=== PATIENT | male | born 1960 | race Caucasian/White ===

== ENCOUNTER 2017-11-04 19:28 | Emergency (ER) | payer OTHER ==
[2017-11-04] MEDS ORDERED: SODIUM CHLORIDE 0.9% 500 ML IV STA (20:08)
[2017-11-04] MEDS ORDERED: ACETAMINOPHEN TAB 500 MG TAB PO STA (20:15)
--- NOTE | 2017-11-04 20:15 | ED ---
General Adult HPI - General Source: patient, RN notes reviewed Mode of arrival: wheelchair Limitations: no limitations <Benjamin Arechiga - Last Filed: 11/04/17 21:05> <Amando Crandall - Last Filed: 11/04/17 22:53> - General Chief complaint: Weakness Stated complaint: Blood in urine Time Seen by Provider: 11/04/17 19:45 - History of Present Illness Initial comments: This a 57-year-old male presents emergency Department complaining that he's been feeling a little bit weak lately and as of this morning he started having some hematuria. Patient denies any dysuria. Patient denies any CVA tenderness. Patient denies any abdominal pain patient denies nausea vomiting diarrhea. Patient denies any flank pain. Patient denies any fever chills so I just took his temperature and had a fever 100.2. Patient denies any recent upper respiratory infection patient denies cough patient denies difficulty breathing shortness of breath. Patient denies any chest pain or palpitations. Patient states he does have a history of atrial fibrillation and is on eliquis. (Benjamin Arechiga) - Related Data Home Medications Medication Instructions Recorded Confirmed Apixaban [Eliquis] 5 mg PO BID 11/04/17 11/04/17 Aspirin [Adult Low Dose Aspirin EC] 81 mg PO DAILY 11/04/17 11/04/17 Diltiazem HCl [Cartia Xt] 120 mg PO DAILY 11/04/17 11/04/17 Dofetilide [Tikosyn] 500 mcg PO Q12HR 11/04/17 11/04/17 LORazepam [Ativan] 1 mg PO HS 11/04/17 11/04/17 Nitroglycerin Sl Tabs [Nitrostat] 0.4 mg SUBLINGUAL Q5M PRN 11/04/17 11/04/17 Rosuvastatin [Crestor] 10 mg PO DAILY 11/04/17 11/04/17 Ticagrelor [Brilinta] 90 mg PO BID 11/04/17 11/04/17 Ubidecarenone [Co Q-10] 200 mg PO DAILY 11/04/17 11/04/17 Previous Rx's Medication Instructions Recorded Ciprofloxacin HCl [Cipro] 500 mg PO Q12HR #14 tablet 11/04/17 Allergies Allergy/AdvReac Type Severity Reaction Status Date / Time acetaminophen AdvReac Nausea & Verified 11/04/17 20:19 [From Darvocet-N] Vomiting & Diarrhea iodine AdvReac Unknown Verified 11/04/17 20:19 propoxyphene AdvReac Nausea & Verified 11/04/17 20:19 [From Darvocet-N] Vomiting & Diarrhea Review of Systems ROS Other: All systems not noted in ROS Statement are negative. <Benjamin Arechiga - Last Filed: 11/04/17 21:05> ROS Other: All systems not noted in ROS Statement are negative. <Amando Crandall - Last Filed: 11/04/17 22:53> ROS Statement: Those systems with pertinent positive or pertinent negative responses have been documented in the HPI. Past Medical History Past Medical History: Atrial Fibrillation, Hyperlipidemia History of Any Multi-Drug Resistant Organisms: None Reported Past Surgical History: Heart Catheterization With Stent Additional Past Surgical History / Comment(s): cardiac ablation Past Psychological History: No Psychological Hx Reported Smoking Status: Current every day smoker Past Alcohol Use History: None Reported Past Drug Use History: None Reported <Benjamin Arechiga - Last Filed: 11/04/17 21:05> General Exam Limitations: no limitations <Benjamin Arechiga - Last Filed: 11/04/17 21:05> <Amando Crandall - Last Filed: 11/04/17 22:53> - General Exam Comments Initial Comments: GENERAL: Patient is well-developed and well-nourished. Patient is nontoxic and well- hydrated and is in mild distress. ENT: Neck is soft and supple. No significant lymphadenopathy is noted. Oropharynx is clear. Moist mucous membranes. Neck has full range of motion without eliciting any pain. EYES: The sclera were anicteric and conjunctiva were pink and moist. Extraocular movements were intact and pupils were equal round and reactive to light. Eyelids were unremarkable. PULMONARY: Unlabored respirations. Good breath sounds bilaterally. No audible rales rhonchi or wheezing was noted. CARDIOVASCULAR: There is a regular rate and rhythm without any murmurs gallops or rubs. ABDOMEN: Soft and nontender with normal bowel sounds. SKIN: Skin is clear with no lesions or rashes and otherwise unremarkable. NEUROLOGIC: Patient is alert and oriented x3. Cranial nerves II through XII are grossly intact. Motor and sensory are also intact. Normal speech, volume and content. Symmetrical smile. MUSCULOSKELETAL: Normal extremities with adequate strength and full range of motion. LYMPHATICS: No significant lymphadenopathy is noted PSYCHIATRIC: Normal psychiatric evaluation. Normal interpersonal interactions appears functionally intact in deals appropriately with others. (Benjamin Arechiga) Vital Signs 11/04/17 11/04/17 11/04/17 19:44 20:38 21:05 Temperature 98.7 F 100.2 F H 98.8 F Pulse Rate 63 69 Respiratory 20 18 Rate Blood Pressure 131/70 124/66 O2 Sat by Pulse 97 99 Oximetry Medical Decision Making - Lab Data Result diagrams: 11/04/17 20:29 11/04/17 20:29 <Benjamin Arechiga - Last Filed: 11/04/17 21:05> - Lab Data Result diagrams: 11/04/17 20:29 11/04/17 20:29 <Amando Crandall - Last Filed: 11/04/17 22:53> - Medical Decision Making X-rays of be taking over the care of this patient at 9 PM (Benjamin Arechiga) - Lab Data Lab Results 11/04/17 11/04/17 11/04/17 Range/Units 20:29 20:29 20:29 WBC 9.4 (3.8-10.6) k/uL RBC 4.44 (4.30-5.90) m/uL Hgb 14.4 (13.0-17.5) gm/dL Hct 41.7 (39.0-53.0) % MCV 93.9 (80.0-100.0) fL MCH 32.4 (25.0-35.0) pg MCHC 34.5 (31.0-37.0) g/dL RDW 12.6 (11.5-15.5) % Plt Count 244 (150-450) k/uL Neutrophils % 71 % Lymphocytes % 19 % Monocytes % 7 % Eosinophils % 1 % Basophils % 1 % Neutrophils # 6.7 (1.3-7.7) k/uL Lymphocytes # 1.8 (1.0-4.8) k/uL Monocytes # 0.6 (0-1.0) k/uL Eosinophils # 0.1 (0-0.7) k/uL Basophils # 0.1 (0-0.2) k/uL PT (9.0-12.0) sec INR (<1.2) APTT (22.0-30.0) sec Sodium 142 (137-145) mmol/L Potassium 3.8 (3.5-5.1) mmol/L Chloride 106 (98-107) mmol/L Carbon Dioxide 23 (22-30) mmol/L Anion Gap 13 mmol/L BUN 19 (9-20) mg/dL Creatinine 1.10 (0.66-1.25) mg/dL Est GFR (CKD-EPI)AfAm 86 (>60 ml/min/1.73 sqM) Est GFR (CKD-EPI)NonAf 74 (>60 ml/min/1.73 sqM) Glucose 123 H (74-99) mg/dL Calcium 9.0 (8.4-10.2) mg/dL Total Bilirubin 0.7 (0.2-1.3) mg/dL AST 29 (17-59) U/L ALT 37 (21-72) U/L Alkaline Phosphatase 79 (38-126) U/L Total Protein 6.3 (6.3-8.2) g/dL Albumin 3.9 (3.5-5.0) g/dL Amylase 55 (30-110) U/L Lipase 74 (23-300) U/L Urine Color Light Red Urine Appearance Cloudy (Clear) Urine pH 5.5 (5.0-8.0) Ur Specific [place] 1.005 (1.001-1.035) Urine Protein 1+ H (Negative) Urine Glucose (UA) Negative (Negative) Urine Ketones Negative (Negative) Urine Blood Large H (Negative) Urine Nitrite Negative (Negative) Urine Bilirubin Negative (Negative) Urine Urobilinogen <2.0 (<2.0) mg/dL Ur Leukocyte Esterase Trace H (Negative) Urine RBC 19 H (0-5) /hpf Urine WBC 7 H (0-5) /hpf Ur Squamous Epith Cells 1 (0-4) /hpf Amorphous Sediment Occasional H (None) /hpf Urine Bacteria Few H (None) /hpf Hyaline Casts 2 (0-2) /lpf Urine Mucus Rare H (None) /hpf //18 Range/Units 20:29 WBC (3.8-10.6) k/uL RBC (4.30-5.90) m/uL Hgb (13.0-17.5) gm/dL Hct (39.0-53.0) % MCV (80.0-100.0) fL MCH (25.0-35.0) pg MCHC (31.0-37.0) g/dL RDW (11.5-15.5) % Plt Count (150-450) k/uL Neutrophils % % Lymphocytes % % Monocytes % % Eosinophils % % Basophils % % Neutrophils # (1.3-7.7) k/uL Lymphocytes # (1.0-4.8) k/uL Monocytes # (0-1.0) k/uL Eosinophils # (0-0.7) k/uL Basophils # (0-0.2) k/uL PT 10.9 (9.0-12.0) sec INR 1.1 (<1.2) APTT 31.1 H (22.0-30.0) sec Sodium (137-145) mmol/L Potassium (3.5-5.1) mmol/L Chloride (98-107) mmol/L Carbon Dioxide (22-30) mmol/L Anion Gap mmol/L BUN (9-20) mg/dL Creatinine (0.66-1.25) mg/dL Est GFR (CKD-EPI)AfAm (>60 ml/min/1.73 sqM) Est GFR (CKD-EPI)NonAf (>60 ml/min/1.73 sqM) Glucose (74-99) mg/dL Calcium (8.4-10.2) mg/dL Total Bilirubin (0.2-1.3) mg/dL AST (17-59) U/L ALT (21-72) U/L Alkaline Phosphatase (38-126) U/L Total Protein (6.3-8.2) g/dL Albumin (3.5-5.0) g/dL Amylase (30-110) U/L Lipase (23-300) U/L Urine Color Urine Appearance (Clear) Urine pH (5.0-8.0) Ur Specific [place] (1.001-1.035) Urine Protein (Negative) Urine Glucose (UA) (Negative) Urine Ketones (Negative) Urine Blood (Negative) Urine Nitrite (Negative) Urine Bilirubin (Negative) Urine Urobilinogen (<2.0) mg/dL Ur Leukocyte Esterase (Negative) Urine RBC (0-5) /hpf Urine WBC (0-5) /hpf Ur Squamous Epith Cells (0-4) /hpf Amorphous Sediment (None) /hpf Urine Bacteria (None) /hpf Hyaline Casts (0-2) /lpf Urine Mucus (None) /hpf Disposition <Benjamin Arechiga - Last Filed: 11/04/17 21:05> Is patient prescribed a controlled substance at d/c from ED?: No <Amando Crandall - Last Filed: 11/04/17 22:53> Clinical Impression: Hematuria, Kidney mass Disposition: HOME SELF-CARE Condition: Fair Instructions: Hematuria (ED) Prescriptions: Ciprofloxacin HCl [Cipro] 500 mg PO Q12HR #14 tablet Referrals: Adan Melton MD [Primary Care Provider] - 1-2 days Reagan Campoverde MD [STAFF PHYSICIAN] - 1-2 days
[2017-11-04 20:42] LABS: Basophils # (A) 0.1 k/uL (0-0.2); Basophils % (A) 1 %; Eosinophils # (A) 0.1 k/uL (0-0.7); Eosinophils % (A) 1 %; HCT 41.7 % (39.0-53.0); HGB 14.4 gm/dL (13.0-17.5); Lymphocytes # (A) 1.8 k/uL (1.0-4.8); Lymphocytes % (A) 19 %; MCH 32.4 pg (25.0-35.0); MCHC 34.5 g/dL (31.0-37.0); MCV 93.9 fL (80.0-100.0); Monocytes # (A) 0.6 k/uL (0-1.0); Monocytes % (A) 7 %; Neutrophils # (A) 6.7 k/uL (1.3-7.7); Neutrophils % (A) 71 %; Platelet Count 244 k/uL (150-450); RBC 4.44 m/uL (4.30-5.90); RDW 12.6 % (11.5-15.5); WBC 9.4 k/uL (3.8-10.6)
[2017-11-04 20:51] LABS: Albumin 3.9 g/dL (3.5-5.0); Potassium 3.8 mmol/L (3.5-5.1); Total Bilirubin 0.7 mg/dL (0.2-1.3); Total Protein 6.3 g/dL (6.3-8.2)
[2017-11-04 20:53] LABS: Amorphous Sediment,Urine Occasional /hpf; Appearance,Urine Cloudy (Clear); Bacteria,Urine Few /hpf; Bilirubin,Urine Negative (Negative); Blood,Urine Large (Negative); Color,Urine Light Red; Glucose,Urine (UA) Negative (Negative); Hyaline Casts,Urine 2 /lpf (0-2); Ketones,Urine Negative (Negative); Leukocyte Esterase,Urine Trace (Negative); Mucus,Urine Rare /hpf; Nitrite,Urine Negative (Negative); PH, Urine 5.5 (5.0-8.0); Protein,Urine 1+ (Negative); RBC,Urine 19 /hpf (0-5); Specific Gravity,Urine 1.005 (1.001-1.035); Squamous Epithelial Cell,Urine 1 /hpf (0-4); Urobilinogen,Urine <2.0 mg/dL (<2.0); WBC,Urine 7 /hpf (0-5)
[2017-11-04 20:58] LABS: INR 1.1 (<1.2); Partial Thromboplastin Time 31.1 sec (22.0-30.0); Prothrombin Time 10.9 sec (9.0-12.0)
[2017-11-04 21:06] VITALS: RESP 18
[2017-11-04] MEDS ORDERED: methylPREDNISolone SOD SUCCI 125 MG/2 ML VIAL IV STA (21:18)
[2017-11-04] MEDS ORDERED: FAMOTIDINE 20 MG/2 ML VIAL IV STA (21:19)
[2017-11-04] MEDS ORDERED: diphenhydrAMINE 50 MG/ML 1 ML VIAL IVP STA (21:19)
--- NOTE | 2017-11-04 22:03 | CT ---
EXAMINATION TYPE: CT abdomen pelvis w con DATE OF EXAM: 11/04/2017 COMPARISON: NONE HISTORY: Hematuria, fatigue and weakness. CT DLP: 1823 mGycm Automated exposure control for dose reduction was used. TECHNIQUE: Helical acquisition of images was performed from the lung bases through the pelvis. CONTRAST: Performed without Oral Contrast and with IV Contrast, patient injected with 100ml mL of Isovue 300. FINDINGS: There is subsegmental atelectasis at the lung bases. There is no pleural effusion. There is no perica rdial effusion. Liver spleen pancreas gallbladder appear normal. Bile ducts are not dilated. There is no adrenal mass. Kidneys show satisfactory contrast opacification. There is no hydronephrosi s. There is solid 3.5 cm enhancing mass in the posterior right kidney. There is 2 cm cortical cyst an terior left kidney. There is 2 cm cortical cyst posterior right kidney. Ureters are not dilated. Bladder distends smoothly. I see no pelvic mass. There is no intestinal wall thickening. There are no dilated loops. Appendix appears normal. There are a few sigmoid diverticula . There is no sign of diverticulitis. Lumbar vertebra are intact. There is no ascites. There is no si gn of free air. IMPRESSION: SMALL RENAL CORTICAL CYSTS. SOLID MASS IN THE POSTERIOR RIGHT KIDNEY SUGGESTIVE OF PRIMARY RENAL TUMOR. FOLLOW-UP IS RECOMMENDED.
[2017-11-04 23:08] VITALS: BP 126/70; PULSE 64; TEMP 97.4
== END 2017-11-04 23:08 | disposition home or self-care (01) ==
LOC: EC 19:28
DX: N28.89 Other specified disorders of kidney and ureter (principal); I48.91 Unspecified atrial fibrillation; E78.5 Hyperlipidemia, unspecified; F17.200 Nicotine dependence, unspecified, uncomplicated; Z79.01 Long term (current) use of anticoagulants; Z79.82 Long term (current) use of aspirin; Z79.899 Other long term (current) drug therapy; Z88.5 Allergy status to narcotic agent; Z88.8 Allergy status to other drugs, medicaments and biological substances; Z95.5 Presence of coronary angioplasty implant and graft
CPT/HCPCS: 36415; 80053; 82150; 83690; 85025; 85610; 85730; 81001; 74177; 99285; 96374; 96375 ×2; 96361; J1200; J2930; Q9967

== ENCOUNTER 2019-07-23 21:44 | Emergency (ER) | payer OTHER ==
[2019-07-23] MEDS ORDERED: methylPREDNISolone SOD SUCCI 125 MG/2 ML VIAL IV STA (22:39)
[2019-07-23] MEDS ORDERED: diphenhydrAMINE 50 MG/ML 1 ML VIAL IVP STA (22:39)
[2019-07-23] MEDS ORDERED: FAMOTIDINE 20 MG/2 ML VIAL IV STA (22:39)
[2019-07-23] MEDS ORDERED: MORPHINE SULFATE 4 MG/ML SYRINGE IVP PRN (23:14)
[2019-07-23 23:15] LABS: Basophils # (A) 0.1 k/uL (0-0.2); Basophils % (A) 1 %; Eosinophils # (A) 0.2 k/uL (0-0.7); Eosinophils % (A) 3 %; HCT 42.1 % (39.0-53.0); HGB 14.5 gm/dL (13.0-17.5); Lymphocytes # (A) 2.4 k/uL (1.0-4.8); Lymphocytes % (A) 28 %; MCHC 34.5 g/dL (31.0-37.0); MCV 95.8 fL (80.0-100.0); Mean Platelet Volume 7.5; Monocytes # (A) 0.7 k/uL (0-1.0); Monocytes % (A) 8 %; Neutrophils % (A) 59 %; Platelet Count 254 k/uL (150-450); RBC 4.39 m/uL (4.30-5.90); RDW 12.2 % (11.5-15.5); WBC 8.5 k/uL (3.8-10.6)
[2019-07-23] MEDS ORDERED: MORPHINE SULFATE 4 MG/ML SYRINGE IVP STA (23:18)
[2019-07-23 23:21] LABS: Appearance,Urine Clear (Clear); Bilirubin,Urine Negative (Negative); Blood,Urine Moderate (Negative); Color,Urine Light Yellow; Glucose,Urine (UA) Negative (Negative); Ketones,Urine Negative (Negative); Leukocyte Esterase,Urine Negative (Negative); Nitrite,Urine Negative (Negative); Protein,Urine Negative (Negative); RBC,Urine 15 /hpf (0-5); Specific Gravity,Urine 1.011 (1.001-1.035); Urobilinogen,Urine <2.0 mg/dL (<2.0); WBC,Urine 1 /hpf (0-5)
[2019-07-23 23:23] LABS: Albumin 3.8 g/dL (3.5-5.0); Calcium 8.9 mg/dL (8.4-10.2); Total Bilirubin 0.4 mg/dL (0.2-1.3); Total Protein 6.5 g/dL (6.3-8.2)
[2019-07-23 23:24] LABS: INR 0.9 (<1.2); Partial Thromboplastin Time 28.5 sec (22.0-30.0); Prothrombin Time 9.8 sec (9.0-12.0)
--- NOTE | 2019-07-24 00:14 | ED ---
Fall HPI - General Chief Complaint: Fall Stated Complaint: Fall Time Seen by Provider: 07/23/19 21:58 Source: patient Mode of arrival: ambulatory - History of Present Illness Initial Comments: Graeme is a pleasant 58-year-old male who presents the ER today for evaluation of right-sided flank pain after a fall at home. Patient reports that he was walking on the ice when he slipped falling backwards onto his right flank. Patient reports that at that time is been having shooting pain in his right side. Patient reports it feels like an internal pain. Patient reports the pain is worse with palpation and certain movements. But nothing relieves the pain completely. Patient does have a history of kidney cancer with a nephrectomy on that side. Patient denies any weakness in the extremities, numbness or tingling or gait instability. He denies any bowel or bladder incontinence. - Related Data Home Medications Medication Instructions Recorded Confirmed Apixaban [Eliquis] 5 mg PO BID 11/04/17 11/04/17 Aspirin [Adult Low Dose Aspirin EC] 81 mg PO DAILY 11/04/17 11/04/17 Diltiazem HCl [Cartia Xt] 120 mg PO DAILY 11/04/17 11/04/17 Dofetilide [Tikosyn] 500 mcg PO Q12HR 11/04/17 11/04/17 LORazepam [Ativan] 1 mg PO HS 11/04/17 11/04/17 Nitroglycerin Sl Tabs [Nitrostat] 0.4 mg SUBLINGUAL Q5M PRN 11/04/17 11/04/17 Rosuvastatin [Crestor] 10 mg PO DAILY 11/04/17 11/04/17 Ticagrelor [Brilinta] 90 mg PO BID 11/04/17 11/04/17 Ubidecarenone [Co Q-10] 200 mg PO DAILY 11/04/17 11/04/17 Previous Rx's Medication Instructions Recorded Ciprofloxacin HCl [Cipro] 500 mg PO Q12HR #14 tablet 11/04/17 Lidocaine 5% Patch [Lidoderm] 1 patch TOPICAL DAILY #30 patch 07/24/19 Methocarbamol [Robaxin-750] 750 mg PO TID #30 tablet 07/24/19 Allergies Allergy/AdvReac Type Severity Reaction Status Date / Time ketorolac [From Toradol] Allergy Anaphylaxis Verified 07/23/19 21:50 acetaminophen AdvReac Nausea & Verified 07/23/19 21:49 [From Darvocet-N] Vomiting & Diarrhea iodine AdvReac Unknown Verified 07/23/19 21:49 propoxyphene AdvReac Nausea & Verified 07/23/19 21:49 [From Darvocet-N] Vomiting & Diarrhea Review of Systems ROS Statement: Those systems with pertinent positive or pertinent negative responses have been documented in the HPI. ROS Other: All systems not noted in ROS Statement are negative. Past Medical History Past Medical History: Atrial Fibrillation, Cancer, Hyperlipidemia Additional Past Medical History / Comment(s): Kidney Cancer History of Any Multi-Drug Resistant Organisms: None Reported Past Surgical History: Heart Catheterization With Stent Additional Past Surgical History / Comment(s): cardiac ablation, Right nephrectomy December 2017 Past Psychological History: No Psychological Hx Reported Smoking Status: Current every day smoker Past Alcohol Use History: None Reported Past Drug Use History: None Reported General Exam - General Exam Comments Initial Comments: Physical Exam GENERAL: Patient is well-developed and well-nourished. Patient is nontoxic and well- hydrated and is in no distress. HENT: Normocephalic, Atraumatic. EYES: PERRL, EOMI PULMONARY: Unlabored respirations. No audible rales rhonchi or wheezing was noted. CARDIOVASCULAR: There is a regular rate and rhythm without any murmurs gallops or rubs. ABDOMEN: Soft and nontender with normal bowel sounds. SKIN: Skin is clear with no lesions or rashes and otherwise unremarkable. : Deferred NEUROLOGIC: Patient is alert and oriented x3. Moving all extremities spontaneously Normal Strength in bilateral lower extremities Decreased patellar reflex on the right secondary to surgical intervention MUSCULOSKELETAL: Normal extremities with adequate strength and full range of motion. No lower extremity swelling or edema. No calf tenderness. PSYCHIATRIC: Normal psychiatric evaluation. Limitations: no limitations Course Vital Signs 07/23/19 07/24/19 07/24/19 21:46 00:30 01:38 Temperature 97.6 F 98.1 F Pulse Rate 74 69 71 Respiratory 16 16 18 Rate Blood Pressure 155/94 140/91 133/76 O2 Sat by Pulse 98 98 97 Oximetry 07/24/19 01:53 Temperature 97.9 F Pulse Rate Respiratory Rate Blood Pressure O2 Sat by Pulse Oximetry Medical Decision Making - Medical Decision Making The patient was seen and evaluated history is obtained from the patient History and physical exam relatively unremarkable however this is a 58-year-old male with a history of cancer who is currently on L Agatha reporting flank pain after a fall Labs as well as CT imaging will be obtained Patient does have a history of ALLERGY to IV contrast therefore premedication wa s ordered patient received premedications, CT was completed without any reaction Labs with no significant abnormalities CT with no signs of traumatic injury that this was not a CT specific for there is no note of any metastatic disease Patient was given a disc of his CD to review with his oncologist Results were discussed with patient who expressed relief, patient's pain was improved with morphine. Patient will be discharged home with Norflex and Lidoderm patches as he is ALLERGIC to NSAIDs. Results were discussed with patient on questions pertaining care were answered return parameters were discussed patient was discharged home in stable condition and provided with a work note for today as he would like to return to work Thursday. - Lab Data Result diagrams: 07/23/19 23:01 07/23/19 23:01 Lab Results 07/23/19 07/23/19 07/23/19 Range/Units 23:01 23:01 23:01 WBC 8.5 (3.8-10.6) k/uL RBC 4.39 (4.30-5.90) m/uL Hgb 14.5 (13.0-17.5) gm/dL Hct 42.1 (39.0-53.0) % MCV 95.8 (80.0-100.0) fL MCH 33.0 (25.0-35.0) pg MCHC 34.5 (31.0-37.0) g/dL RDW 12.2 (11.5-15.5) % Plt Count 254 (150-450) k/uL Neutrophils % 59 % Lymphocytes % 28 % Monocytes % 8 % Eosinophils % 3 % Basophils % 1 % Neutrophils # 5.0 (1.3-7.7) k/uL Lymphocytes # 2.4 (1.0-4.8) k/uL Monocytes # 0.7 (0-1.0) k/uL Eosinophils # 0.2 (0-0.7) k/uL Basophils # 0.1 (0-0.2) k/uL PT 9.8 (9.0-12.0) sec INR 0.9 (<1.2) APTT 28.5 (22.0-30.0) sec Sodium 138 (137-145) mmol/L Potassium 4.0 (3.5-5.1) mmol/L Chloride 105 (98-107) mmol/L Carbon Dioxide 25 (22-30) mmol/L Anion Gap 8 mmol/L BUN 22 H (9-20) mg/dL Creatinine 1.14 (0.66-1.25) mg/dL Est GFR (CKD-EPI)AfAm 82 (>60 ml/min/1.73 sqM) Est GFR (CKD-EPI)NonAf 71 (>60 ml/min/1.73 sqM) Glucose 132 H (74-99) mg/dL Calcium 8.9 (8.4-10.2) mg/dL Total Bilirubin 0.4 (0.2-1.3) mg/dL AST 26 (17-59) U/L ALT 23 (4-49) U/L Alkaline Phosphatase 99 (38-126) U/L Troponin I (0.000-0.034) ng/mL Total Protein 6.5 (6.3-8.2) g/dL Albumin 3.8 (3.5-5.0) g/dL Urine Color Urine Appearance (Clear) Urine pH (5.0-8.0) Ur Specific [place] (1.001-1.035) Urine Protein (Negative) Urine Glucose (UA) (Negative) Urine Ketones (Negative) Urine Blood (Negative) Urine Nitrite (Negative) Urine Bilirubin (Negative) Urine Urobilinogen (<2.0) mg/dL Ur Leukocyte Esterase (Negative) Urine RBC (0-5) /hpf Urine WBC (0-5) /hpf 07/23/19 07/23/19 Range/Units 23:01 23:14 WBC (3.8-10.6) k/uL RBC (4.30-5.90) m/uL Hgb (13.0-17.5) gm/dL Hct (39.0-53.0) % MCV (80.0-100.0) fL MCH (25.0-35.0) pg MCHC (31.0-37.0) g/dL RDW (11.5-15.5) % Plt Count (150-450) k/uL Neutrophils % % Lymphocytes % % Monocytes % % Eosinophils % % Basophils % % Neutrophils # (1.3-7.7) k/uL Lymphocytes # (1.0-4.8) k/uL Monocytes # (0-1.0) k/uL Eosinophils # (0-0.7) k/uL Basophils # (0-0.2) k/uL PT (9.0-12.0) sec INR (<1.2) APTT (22.0-30.0) sec Sodium (137-145) mmol/L Potassium (3.5-5.1) mmol/L Chloride (98-107) mmol/L Carbon Dioxide (22-30) mmol/L Anion Gap mmol/L BUN (9-20) mg/dL Creatinine (0.66-1.25) mg/dL Est GFR (CKD-EPI)AfAm (>60 ml/min/1.73 sqM) Est GFR (CKD-EPI)NonAf (>60 ml/min/1.73 sqM) Glucose (74-99) mg/dL Calcium (8.4-10.2) mg/dL Total Bilirubin (0.2-1.3) mg/dL AST (17-59) U/L ALT (4-49) U/L Alkaline Phosphatase (38-126) U/L Troponin I <0.012 (0.000-0.034) ng/mL Total Protein (6.3-8.2) g/dL Albumin (3.5-5.0) g/dL Urine Color Light Yellow Urine Appearance Clear (Clear) Urine pH 6.0 (5.0-8.0) Ur Specific [place] 1.011 (1.001-1.035) Urine Protein Negative (Negative) Urine Glucose (UA) Negative (Negative) Urine Ketones Negative (Negative) Urine Blood Moderate H (Negative) Urine Nitrite Negative (Negative) Urine Bilirubin Negative (Negative) Urine Urobilinogen <2.0 (<2.0) mg/dL Ur Leukocyte Esterase Negative (Negative) Urine RBC 15 H (0-5) /hpf Urine WBC 1 (0-5) /hpf Disposition Clinical Impression: Fall Disposition: HOME SELF-CARE Condition: Stable Additional Instructions: Your CT today showed no traumatic injury, however you can still have muscle spasm related pain You will be prescribed a muscle relaxor as well as lidocaine patches Return to the ER for any worsening of your pain Follow up with your regular doctor next week for re-evaluation Prescriptions: Lidocaine 5% Patch [Lidoderm] 1 patch TOPICAL DAILY #30 patch Methocarbamol [Robaxin-750] 750 mg PO TID #30 tablet Is patient prescribed a controlled substance at d/c from ED?: No Referrals: Adan Melton MD [Primary Care Provider] - 1-2 days
--- NOTE | 2019-07-24 00:26 | CT ---
EXAMINATION TYPE: CT thor lumbar spine wo con DATE OF EXAM: 07/23/2019 COMPARISON: None HISTORY: Right flank pain from fall CT DLP: 647.5 mGycm Automated exposure control for dose reduction was used. Multiple axial sections were obtained from the level of C7 vertebra to the S2 vertebra without contra st. Thoracic and lumbar vertebra have normal alignment. Disc spaces are fairly normal. There is no eviden ce of focal bone destruction. There is 10% wedging of T7 and T5 and T4 and T3 vertebra. The posterior elements are intact. I see no focal bone destruction. There is no thoracic paraspinal mass. The sacr oiliac joints appear intact. IMPRESSION: Minimal osteoporotic type anterior wedging of some thoracic vertebra. No acute fracture seen.
--- NOTE | 2019-07-24 00:49 | CT ---
EXAMINATION TYPE: CT ChestAbdPelvis wo/w con DATE OF EXAM: 07/23/2019 COMPARISON: CT abdomen pelvis 11/04/2017 HISTORY: right flank pain from fall CT DLP: 2449 mGycm Automated exposure control for dose reduction was used. CONTRAST: Performed with IV Contrast, patient injected with 100 mL of Isovue 300. Multiple axial sections were obtained from the thoracic inlet to the floor the pelvis with and withou t contrast. The lungs are clear of consolidation. There is no evidence of a pulmonary mass. There is no pleural e ffusion. Heart size is normal. There is no mediastinal adenopathy. There are no hilar masses. Thoraci c aorta has normal size. There is no aneurysm. There is coronary artery calcification. Liver spleen pancreas gallbladder appear normal. Bile ducts are not dilated. Stomach is intact. There is no adrenal mass. The right kidney is absent. Left kidney shows normal size and contour. Ther e is normal contrast opacification. There is no hydronephrosis. There are small left renal cortical c ysts that measure up to 1.5 cm. There is no sign of solid renal mass. The left ureter is not dilated. Bladder distends smoothly. There is no inguinal hernia. There is no free fluid in the pelvis. There are multiple diverticula in the sigmoid colon. Appendix is posterior and appears normal. There is no mesenteric edema. There is no ascites or free air. There is no evidence of bowel obstruct ion. Thoracic and lumbar vertebra have normal alignment. There is slight anterior wedging of multiple thoracic vertebra up to 10% consistent with osteoporosis. These appear old. Bony pelvis appears inta ct. Abdominal aorta is atheromatous. There is no aneurysm. IMPRESSION: No acute abnormality of the chest abdomen pelvis. No sign of traumatic injury. There is right-sided n ephrectomy since last exam. Stable left renal cysts.
[2019-07-24 01:38] VITALS: BP 133/76; PULSE 71; RESP 18
[2019-07-24 01:54] VITALS: TEMP 97.9
== END 2019-07-24 01:53 | disposition home or self-care (01) ==
LOC: EC 21:44
DX: R10.9 Unspecified abdominal pain (principal); I48.91 Unspecified atrial fibrillation; E78.5 Hyperlipidemia, unspecified; F17.200 Nicotine dependence, unspecified, uncomplicated; Z79.01 Long term (current) use of anticoagulants; Z79.82 Long term (current) use of aspirin; Z79.899 Other long term (current) drug therapy; Z88.6 Allergy status to analgesic agent; Z91.041 Radiographic dye allergy status; Z88.8 Allergy status to other drugs, medicaments and biological substances; Z95.5 Presence of coronary angioplasty implant and graft; Z90.5 Acquired absence of kidney; Z85.528 Personal history of other malignant neoplasm of kidney; W01.0XXA Fall on same level from slipping, tripping and stumbling without subsequent striking against object, initial encounter
CPT/HCPCS: 36415; 80053; 84484; 85025; 85610; 85730; 81001; 72128; 72131; 71270; 74178; 99284; 96374; 96375 ×3; J2270; J1200; J2930; Q9967

== ENCOUNTER 2023-01-30 14:49 | Observation (INO) | payer OTHER ==
--- NOTE | 2023-01-30 16:26 | ED ---
Abdominal Pain HPI - General Chief Complaint: Abdominal Pain Stated Complaint: abn CT-abd pain Time Seen by Provider: 01/30/23 16:18 Source: patient, RN notes reviewed, old records reviewed Mode of arrival: wheelchair Limitations: no limitations - History of Present Illness Initial Comments: This is a 62-year-old male DF for evaluation. Patient presents with CT scanning today for evaluation of abdominal pain. After patient did have a computed tomography scan aching the emergency department for evaluation of severe pain worsening pain and intractable pain. Patient presents to the ER under his own accord. Patient unconcerned about his computed tomography scan findings were has severe severe abdominal pain. Mild nausea no vomiting no diarrhea no other complaints MD Complaint: abdominal pain -: days(s) Location: diffuse Radiation: none, LLQ Migration to: LLQ, suprapubic, bilateral flank Severity: severe Severity scale (1-10): 9 Quality: stabbing Consistency: intermittent Improves With: nothing Worsens With: nothing Associated Symptoms: nausea - Related Data Home Medications Medication Instructions Recorded Confirmed Apixaban [Eliquis] 5 mg PO BID 11/04/17 01/30/23 Aspirin [Adult Low Dose Aspirin EC] 81 mg PO DAILY 11/04/17 01/30/23 Atorvastatin [Lipitor] 80 mg PO HS 07/23/22 01/30/23 carvediloL [Coreg] 6.25 mg PO BID 07/23/22 01/30/23 Amoxic-Pot Clav 875-125Mg 1 tab PO DIRECTED 01/30/23 01/30/23 [Augmentin 875-125] HYDROcodone/APAP 5-325MG [[place] 1 tab PO DIRECTED PRN 01/30/23 01/30/23 5-325] LORazepam [Ativan] 1 mg PO DIRECTED PRN 01/30/23 01/30/23 Meclizine [Antivert] 25 mg PO TID PRN 01/30/23 01/30/23 Nicotine 14Mg/24Hr Patch [Habitrol 1 patch TRANSDERM DAILY PRN 01/30/23 01/30/23 14Mg/24Hr Patch] Allergies Allergy/AdvReac Type Severity Reaction Status Date / Time iodine Allergy Hallucinati Verified 01/30/23 20:43 ons ketorolac [From Toradol] Allergy Anaphylaxis Verified 01/30/23 20:43 acetaminophen AdvReac Nausea & Verified 01/30/23 20:43 [From Darvocet-N] Vomiting & Diarrhea propoxyphene AdvReac Nausea & Verified 01/30/23 20:43 [From Darvocet-N] Vomiting & Diarrhea Review of Systems ROS Statement: Those systems with pertinent positive or pertinent negative responses have been documented in the HPI. ROS Other: All systems not noted in ROS Statement are negative. Past Medical History Past Medical History: Atrial Fibrillation, Cancer, Hyperlipidemia, Hypertension, Prostate Disorder Additional Past Medical History / Comment(s): Kidney and Prostate cancer History of Any Multi-Drug Resistant Organisms: None Reported Past Surgical History: Cardiac Ablation, Heart Catheterization With Stent Additional Past Surgical History / Comment(s): Right nephrectomy December 2017, stents x2 Past Anesthesia/Blood Transfusion Reactions: No Reported Reaction Date of Last Stent Placement:: unk Past Psychological History: No Psychological Hx Reported Smoking Status: Current every day smoker Past Alcohol Use History: Rare Past Drug Use History: None Reported General Exam Limitations: no limitations General appearance: alert, in no apparent distress Head exam: Present: atraumatic, normocephalic, normal inspection Eye exam: Present: normal appearance, PERRL, EOMI. Absent: scleral icterus, conjunctival injection, periorbital swelling ENT exam: Present: normal exam, mucous membranes moist Neck exam: Present: normal inspection. Absent: tenderness, meningismus, lymphadenopathy Respiratory exam: Present: normal lung sounds bilaterally. Absent: respiratory distress, wheezes, rales, rhonchi, stridor Cardiovascular Exam: Present: regular rate, normal rhythm, normal heart sounds. Absent: systolic murmur, diastolic murmur, rubs, gallop, clicks GI/Abdominal exam: Present: soft, normal bowel sounds. Absent: distended, tenderness, guarding, rebound, rigid Extremities exam: Present: normal inspection, full ROM, normal capillary refill. Absent: tenderness, pedal edema, joint swelling, calf tenderness Back exam: Present: normal inspection Neurological exam: Present: alert, oriented X3, CN II-XII intact Psychiatric exam: Present: normal affect, normal mood Skin exam: Present: warm, dry, intact, normal color. Absent: rash Course Vital Signs 01/30/23 01/30/23 01/30/23 15:18 18:17 19:33 Temperature 98.6 F Pulse Rate 61 56 L 53 L Pulse Rate [ Pulse Oximetery ] Respiratory 20 18 16 Rate Blood Pressure 151/89 141/89 144/90 Blood Pressure [Left Arm] O2 Sat by Pulse 99 97 97 Oximetry 01/30/23 01/30/23 20:48 21:54 Temperature 98.0 F Pulse Rate 56 L Pulse Rate [ 57 L Pulse Oximetery ] Respiratory 16 16 Rate Blood Pressure 148/89 Blood Pressure 139/82 [Left Arm] O2 Sat by Pulse 96 97 Oximetry - Reevaluation(s) Reevaluation #1: 01/30/23 23:52 Medical records reviewed Reevaluation #2: 01/30/23 23:52 patient patient symptoms are improved 01/30/23 23:52 Pain is difficult to control Reevaluation #3: 01/30/23 23:53 Patient informed results questions answered Reevaluation #4: 01/30/23 20:13 Was pt. sent in by a medical professional or institution (, PA, YOUTH TEACHER, urgent care, hospital, or [facility]...) When possible be specific @ -no Did you speak to anyone other than the patient for history (EMS, parent, family, police, friend...)? What history was obtained from this source @ -no Did you review nursing and triage notes (agree or disagree)? Why? @ -agree Are old charts reviewed (outside hosp., previous admission, EMS record, old EKG, old radiological studies, urgent care reports/EKG's, [facility] records)? Report findings @ -yes Differential Diagnosis (chest pain, altered mental status, abdominal pain women, abdominal pain men, vaginal bleeding, weakness, fever, dyspnea, syncope, headache, dizziness, GI bleed, back pain, seizure, CVA, palpatations, mental health, musculoskeletal)? @ -prior EKG interpreted by me (3pts min.). @ -yes X-rays interpreted by me (1pt min.). @ -yes CT interpreted by me (1pt min.). @ -no U/S interpreted by me (1pt. min.). @ -no What testing was considered but not performed or refused? (CT, X-rays, U/S, labs)? Why? @ -none What meds were considered but not given or refused? Why? @ -none Did you discuss the management of the patient with other professionals (professionals i.e. , PA, YOUTH TEACHER, lab, RT, psych nurse, hospice social worker, medical assistant, teacher, driver license reviewing officer, case management assistant)? Give summary @ -no Was smoking cessation discussed for >3mins.? @ -no Was critical care preformed (if so, how long)? @ -no Were there social determinants of health that impacted care today? How? (Homelessness, low income, unemployed, alcoholism, drug addiction, transportation, low edu. Level, literacy, decrease access to med. care, [facility], re hab)? @ -none Was there de-escalation of care discussed even if they declined (Discuss DNR or withdrawal of care, Hospice)? DNR status @ -no What co-morbidities impacted this encounter? (DM, HTN, Smoking, COPD, CAD, Cancer, CVA, ARF, Chemo, Hep., AIDS, mental health diagnosis, sleep apnea, morbid obesity)? @ -none Was patient admitted / discharged? Hospital course, mention meds given and route, prescriptions, significant lab abnormalities, going to OR and other pertinent info. @ - Undiagnosed new problem with uncertain prognosis? @ -no Drug Therapy requiring intensive monitoring for toxicity (Heparin, Nitro, Insulin, Cardizem)? @ -no Were any procedures done? @ -no Diagnosis/symptom? @ - Acute, or Chronic, or Acute on Chronic? @ -Acute Uncomplicated (without systemic symptoms) or Complicated (systemic symptoms)? @ -Complicated Side effects of treatment? @ -no Exacerbation, Progression, or Severe Exacerbation? @ -exacerbation Poses a threat to life or bodily function? How? (Chest pain, USA, PR, pneumonia, PE, COPD, DKA, ARF, appy, cholecystitis, CVA, Diverticulitis, Homicidal, Suicidal, threat to staff... and all critical care pts) @ -yes Reevaluation #5: 01/30/23 23:53 Differential Abdominal Pain Men: Appendicitis, cholecystitis, diverticulosis, ischemic bowel, pancreatitis, hepatitis, UTI, gastroenteritis, AAA, incarcerated hernia, bowel obstruction, constipation, inflammatory bowel, hepatitis, peptic ulcer disease, splenic infarction, perforated viscus, testicular torsion, this is not meant to be an all-inclusive list - Consultations Consultation #1: Spoke with admitting physicians who agree to admit this patient Medical Decision Making - Medical Decision Making This is a 62-year-old male who presents today for evaluation of persistent abdominal pain likely due to diverticulitis versus a polyp port appendicitis. Patient made for pain control - Lab Data Result diagrams: 01/30/23 18:01 01/30/23 18:01 Lab Results 01/30/23 01/30/23 01/30/23 Range/Units 18:01 18:01 18:01 WBC 7.9 (3.8-10.6) k/uL RBC 4.82 (4.30-5.90) m/uL Hgb 15.9 (13.0-17.5) gm/dL Hct 48.4 (39.0-53.0) % MCV 100.4 H (80.0-100.0) fL MCH 33.0 (25.0-35.0) pg MCHC 32.9 (31.0-37.0) g/dL RDW 12.5 (11.5-15.5) % Plt Count 224 (150-450) k/uL MPV 8.0 Neutrophils % 62 % Lymphocytes % 27 % Monocytes % 6 % Eosinophils % 3 % Basophils % 0 % Neutrophils # 4.9 (1.3-7.7) k/uL Lymphocytes # 2.2 (1.0-4.8) k/uL Monocytes # 0.5 (0-1.0) k/uL Eosinophils # 0.2 (0-0.7) k/uL Basophils # 0.0 (0-0.2) k/uL PT 10.3 (9.0-12.0) sec INR 1.0 (<1.2) APTT 29.6 (22.0-30.0) sec Sodium 139 (137-145) mmol/L Potassium 4.1 (3.5-5.1) mmol/L Chloride 108 H (98-107) mmol/L Carbon Dioxide 26 (22-30) mmol/L Anion Gap 5 mmol/L BUN 15 (9-20) mg/dL Creatinine 0.94 (0.66-1.25) mg/dL Est GFR (CKD-EPI)AfAm >90 (>60 ml/min/1.73 sqM) Est GFR (CKD-EPI)NonAf 87 (>60 ml/min/1.73 sqM) Glucose 78 (74-99) mg/dL Plasma Lactic Acid Conner (0.7-2.0) mmol/L Calcium 9.1 (8.4-10.2) mg/dL Phosphorus 3.5 (2.5-4.5) mg/dL Magnesium 1.9 (1.6-2.3) mg/dL Total Bilirubin 1.0 (0.2-1.3) mg/dL AST 25 (17-59) U/L ALT 24 (4-49) U/L Alkaline Phosphatase 125 (38-126) U/L Troponin I (0.000-0.034) ng/mL NT-Pro-B Natriuret Pep 157 pg/mL Total Protein 6.9 (6.3-8.2) g/dL Albumin 3.9 (3.5-5.0) g/dL 01/30/23 01/30/23 Range/Units 18:01 18:27 WBC (3.8-10.6) k/uL RBC (4.30-5.90) m/uL Hgb (13.0-17.5) gm/dL Hct (39.0-53.0) % MCV (80.0-100.0) fL MCH (25.0-35.0) pg MCHC (31.0-37.0) g/dL RDW (11.5-15.5) % Plt Count (150-450) k/uL MPV Neutrophils % % Lymphocytes % % Monocytes % % Eosinophils % % Basophils % % Neutrophils # (1.3-7.7) k/uL Lymphocytes # (1.0-4.8) k/uL Monocytes # (0-1.0) k/uL Eosinophils # (0-0.7) k/uL Basophils # (0-0.2) k/uL PT (9.0-12.0) sec INR (<1.2) APTT (22.0-30.0) sec Sodium (137-145) mmol/L Potassium (3.5-5.1) mmol/L Chloride (98-107) mmol/L Carbon Dioxide (22-30) mmol/L Anion Gap mmol/L BUN (9-20) mg/dL Creatinine (0.66-1.25) mg/dL Est GFR (CKD-EPI)AfAm (>60 ml/min/1.73 sqM) Est GFR (CKD-EPI)NonAf (>60 ml/min/1.73 sqM) Glucose (74-99) mg/dL Plasma Lactic Acid [place]ner 0.9 (0.7-2.0) mmol/L Calcium (8.4-10.2) mg/dL Phosphorus (2.5-4.5) mg/dL Magnesium (1.6-2.3) mg/dL Total Bilirubin (0.2-1.3) mg/dL AST (17-59) U/L ALT (4-49) U/L Alkaline Phosphatase (38-126) U/L Troponin I <0.012 (0.000-0.034) ng/mL NT-Pro-B Natriuret Pep pg/mL Total Protein (6.3-8.2) g/dL Albumin (3.5-5.0) g/dL - EKG Data -: EKG Interpreted by Me (EKG sinus bradycardia 51 [place] 132 QRS 90 QTC 432) - Radiology Data Radiology results: image reviewed Disposition Clinical Impression: Abdominal pain, Gastroenteritis, Diverticulitis, Epiploic appendagitis Disposition: ADMITTED IP TO THIS HOSP Condition: Good Is patient prescribed a controlled substance at d/c from ED?: No Time of Disposition: 20:00
[2023-01-30] MEDS ORDERED: AMPICILLIN-SULBACTAM 3 GM in SODIUM CHLORIDE 0.9% 100 ML IVPB STA (16:58)
[2023-01-30] MEDS ORDERED: ONDANSETRON 4 MG/2 ML VIAL IVP STA (16:58)
[2023-01-30] MEDS ORDERED: SODIUM CHLORIDE 0.9% 1,000 ML IV STA ×2 (16:58)
[2023-01-30] MEDS ORDERED: MORPHINE SULFATE 4 MG/ML SYRINGE IV STA (16:58)
[2023-01-30 18:20] LABS: Basophils % (A) 0 %; Eosinophils # (A) 0.2 k/uL (0-0.7); Eosinophils % (A) 3 %; HCT 48.4 % (39.0-53.0); HGB 15.9 gm/dL (13.0-17.5); Lymphocytes # (A) 2.2 k/uL (1.0-4.8); Lymphocytes % (A) 27 %; MCHC 32.9 g/dL (31.0-37.0); MCV 100.4 fL (80.0-100.0); Monocytes # (A) 0.5 k/uL (0-1.0); Monocytes % (A) 6 %; Neutrophils # (A) 4.9 k/uL (1.3-7.7); Neutrophils % (A) 62 %; Platelet Count 224 k/uL (150-450); RBC 4.82 m/uL (4.30-5.90); RDW 12.5 % (11.5-15.5); WBC 7.9 k/uL (3.8-10.6)
[2023-01-30 18:42] LABS: Partial Thromboplastin Time 29.6 sec (22.0-30.0); Prothrombin Time 10.3 sec (9.0-12.0)
[2023-01-30 18:43] LABS: ALT 24 U/L (4-49); AST 25 U/L (17-59); African American GFR (CKD) >90 (>60 ml/min/1.73 sqM); Albumin 3.9 g/dL (3.5-5.0); Alkaline Phosphatase 125 U/L (38-126); Anion Gap 5 mmol/L; Blood Urea Nitrogen 15 mg/dL (9-20); Calcium 9.1 mg/dL (8.4-10.2); Carbon Dioxide 26 mmol/L (22-30); Chloride 108 mmol/L (98-107); Glucose 78 mg/dL (74-99); Magnesium 1.9 mg/dL (1.6-2.3); Non-African American GFR(CKD) 87 (>60 ml/min/1.73 sqM); Phosphorus 3.5 mg/dL (2.5-4.5); Potassium 4.1 mmol/L (3.5-5.1); Sodium 139 mmol/L (137-145); Total Protein 6.9 g/dL (6.3-8.2)
[2023-01-30 18:48] LABS: NT-Pro-B-Type Natriuretic Pept 157 pg/mL
[2023-01-30] MEDS ORDERED: ONDANSETRON 4 MG/2 ML VIAL IVP PRN ×2 (20:10→21:20)
[2023-01-30] MEDS ORDERED: NALOXONE 0.4 MG/ML 1 ML VIAL IV PRN (20:10)
[2023-01-30] MEDS ORDERED: MECLIZINE 25 MG TAB PO PRN (21:21)
[2023-01-30] MEDS: NICOTINE 14MG/24HR PATCH TRANSDERM SCH (22:17)
[2023-01-30] MEDS: MORPHINE SULFATE 4 MG/ML SYRINGE IVP PRN (22:34)
[2023-01-31] MEDS: AMPICILLIN-SULBACTAM 3 GM in SODIUM CHLORIDE 0.9% 100 ML IVPB SCH ×3 (02:38→17:24)
[2023-01-31] MEDS: MORPHINE SULFATE 4 MG/ML SYRINGE IVP PRN ×5 (02:38→21:10)
[2023-01-31] MEDS: carvediloL 6.25 MG TAB PO SCH ×2 (06:31→17:23)
[2023-01-31] MEDS: APIXABAN 5 MG TAB PO SCH ×2 (08:43→21:00)
[2023-01-31] MEDS: NICOTINE 14MG/24HR PATCH TRANSDERM SCH (08:43)
[2023-01-31 09:19] LABS: Basophils % (A) 0 %; Eosinophils # (A) 0.2 k/uL (0-0.7); Eosinophils % (A) 3 %; HGB 14.2 gm/dL (13.0-17.5); Lymphocytes % (A) 29 %; MCHC 33.8 g/dL (31.0-37.0); MCV 100.5 fL (80.0-100.0); Mean Platelet Volume 8.6; Monocytes # (A) 0.5 k/uL (0-1.0); Monocytes % (A) 7 %; Neutrophils % (A) 58 %; Platelet Count 206 k/uL (150-450); RBC 4.18 m/uL (4.30-5.90); WBC 6.8 k/uL (3.8-10.6)
[2023-01-31 09:56] LABS: ALT 19 U/L (4-49); AST 19 U/L (17-59); African American GFR (CKD) >90 (>60 ml/min/1.73 sqM); Albumin/Globulin Ratio 1.2; Alkaline Phosphatase 121 U/L (38-126); Anion Gap 5 mmol/L; Blood Urea Nitrogen 13 mg/dL (9-20); Calcium 8.2 mg/dL (8.4-10.2); Carbon Dioxide 24 mmol/L (22-30); Chloride 109 mmol/L (98-107); Globulin 2.6 g/dL; Glucose 91 mg/dL (74-99); Magnesium 1.7 mg/dL (1.6-2.3); Non-African American GFR(CKD) 87 (>60 ml/min/1.73 sqM); Sodium 138 mmol/L (137-145); Total Bilirubin 0.9 mg/dL (0.2-1.3); Total Protein 5.6 g/dL (6.3-8.2)
--- NOTE | 2023-01-31 13:43 | P.HPIM ---
History of Present Illness H&P Date: 01/31/23 Chief Complaint: Abdominal pain * 62-year-old gentleman with past medical history significant for atrial fibrillation, history of prostate cancer, history of renal cancer status post nephrectomy, pulmonary nodule , hypertension presented to the emergency department with complaints of abdominal pain. Patient stated his symptom onset was 5 days ago and was following up with primary care provider who had ordered an outpatient CT abdomen pelvis * Patient states his pain was uncontrolled and decided to come to the emergency even before the CT but reported * On CT report patient was noted to have inflammation in the descending colons consistent with colitis. Surgical absent right kidney was noted. Right lower lung no deal about 12 mm was noted. A dedicated CT chest has been ordered for better evaluation * Workup in ER included CBC which showed WBC of 7.9 hemoglobin 15 hematocrit of 48 and platelet count of 224 * Serum chemistry showed sodium of 139 potassium 4.1 and carbon dioxide 26 BUN 15 creatinine 0.94 * He was admitted to medical floor placed on a clear liquid diet and started on IV antibiotics for acute colitis * he denies associated fever, chills, nausea, vomiting, diarrhea REVIEW OF SYSTEMS: CONSTITUTIONAL: No fever, no malaise, no fatigue. HEENT: No recent visual problems or hearing problems. Denied any sore throat. CARDIOVASCULAR: No chest pain, orthopnea, PND, no palpitations, no syncope. PULMONARY: No shortness of breath, no cough, no hemoptysis. GASTROINTESTINAL: No diarrhea, no nausea, no vomiting, abdominal pain present. NEUROLOGICAL: No headaches, no weakness, no numbness. HEMATOLOGICAL: Denies any bleeding or petechiae. GENITOURINARY: Denies any burning micturition, frequency, or urgency. MUSCULOSKELETAL/RHEUMATOLOGICAL: Denies any joint pain, swelling, or any muscle pain. ENDOCRINE: Denies any polyuria or polydipsia. The rest of the 14-point review of systems is negative. PHYSICAL EXAMINATION: GENERAL: The patient is alert and oriented x3, not in any acute distress. Well developed, well nourished. HEENT: Pupils are round and equally reacting to light. EOMI. No scleral icterus. No conjunctival pallor. Normocephalic, atraumatic. No pharyngeal erythema. No thyromegaly. CARDIOVASCULAR: S1 and S2 present. No murmurs, rubs, or gallops. PULMONARY: Chest is clear to auscultation, no wheezing or crackles. ABDOMEN: Soft, left lower quadrant tender MUSCULOSKELETAL: No joint swelling or deformity. EXTREMITIES: No cyanosis, clubbing, or pedal edema. NEUROLOGICAL: Gross neurological examination did not reveal any focal deficits. SKIN: No rashes. Past Medical History Past Medical History: Atrial Fibrillation, Cancer, Hyperlipidemia, Hypertension, Prostate Disorder Additional Past Medical History / Comment(s): Kidney and Prostate cancer History of Any Multi-Drug Resistant Organisms: None Reported Past Surgical History: Cardiac Ablation, Heart Catheterization With Stent Additional Past Surgical History / Comment(s): Right nephrectomy December 2017, s tents x2 Past Anesthesia/Blood Transfusion Reactions: No Reported Reaction Date of Last Stent Placement:: unk Past Psychological History: No Psychological Hx Reported Smoking Status: Current every day smoker Past Alcohol Use History: Rare Past Drug Use History: None Reported Medications and Allergies Home Medications Medication Instructions Recorded Confirmed Type Apixaban [Eliquis] 5 mg PO BID 11/04/17 01/30/23 History Aspirin [Adult Low Dose Aspirin EC] 81 mg PO DAILY 11/04/17 01/30/23 History Atorvastatin [Lipitor] 80 mg PO HS 07/23/22 01/30/23 History carvediloL [Coreg] 6.25 mg PO BID 07/23/22 01/30/23 History Amoxic-Pot Clav 875-125Mg 1 tab PO DIRECTED 01/30/23 01/30/23 History [Augmentin 875-125] HYDROcodone/APAP 5-325MG [[place] 1 tab PO DIRECTED PRN 01/30/23 01/30/23 History 5-325] LORazepam [Ativan] 1 mg PO DIRECTED PRN 01/30/23 01/30/23 History Meclizine [Antivert] 25 mg PO TID PRN 01/30/23 01/30/23 History Nicotine 14Mg/24Hr Patch [Habitrol 1 patch TRANSDERM DAILY PRN 01/30/23 01/30/23 History 14Mg/24Hr Patch] Allergies Allergy/AdvReac Type Severity Reaction Status Date / Time iodine Allergy Hallucinati Verified 01/30/23 20:43 ons ketorolac [From Toradol] Allergy Anaphylaxis Verified 01/30/23 20:43 acetaminophen AdvReac Nausea & Verified 01/30/23 20:43 [From Darvocet-N] Vomiting & Diarrhea propoxyphene AdvReac Nausea & Verified 01/30/23 20:43 [From Darvocet-N] Vomiting & Diarrhea Physical Exam Vitals: Vital Signs Temp Pulse Pulse Resp BP BP Pulse Ox 01/31/23 07:00 97.7 F 58 L 16 142/82 95 01/31/23 01:29 97.9 F 55 L 16 137/83 96 01/30/23 21:54 98.0 F 57 L 16 139/82 97 01/30/23 20:48 56 L 16 148/89 96 01/30/23 19:33 53 L 16 144/90 97 01/30/23 18:17 56 L 18 141/89 97 01/30/23 15:18 98.6 F 61 20 151/89 99 Intake and Output 01/30/23 01/31/23 01/31/23 22:59 06:59 14:59 Other: # Voids 3 Weight 96.615 kg Results CBC & Chem 7: 01/31/23 07:56 01/31/23 07:56 Labs: Abnormal Lab Results - Last 24 Hours (Table) 01/30/23 01/30/23 01/31/23 Range/Units 18:01 18:01 07:56 RBC 4.18 L (4.30-5.90) m/uL MCV 100.4 H 100.5 H (80.0-100.0) fL Chloride 108 H (98-107) mmol/L Calcium (8.4-10.2) mg/dL Total Protein (6.3-8.2) g/dL Albumin (3.5-5.0) g/dL 01/31/23 Range/Units 07:56 RBC (4.30-5.90) m/uL MCV (80.0-100.0) fL Chloride 109 H (98-107) mmol/L Calcium 8.2 L (8.4-10.2) mg/dL Total Protein 5.6 L (6.3-8.2) g/dL Albumin 3.0 L (3.5-5.0) g/dL Assessment and Plan Assessment: Assessment and plan * Acute colitis involving descending colon * History of atrial fibrillation * History of dyslipidemia * History of CVA * History of renal and prostate cancer status post nephrectomy right side * Pulmonary nodule * In regards to colitis, outpatient CT abdomen and pelvis reviewed. If patient starts having diarrhea will check stool cultures and stool C. diff * Continue patient on IV antibiotic receiving Unasyn * In regards to history of A. fib continue Eliquis, Coreg * Continue patient on clear liquid diets T suspected with IV fluid * In regards to lung no deal CT chest ordered without contrast * CODE STATUS is full code
--- NOTE | 2023-01-31 15:08 | P.GSCN ---
History of Present Illness Consult date: 01/31/23 History of present illness: Seen for abdominal pain. Reports similar pain for diverticulitis 2018. History of prostate cancer. CT reviewed with epiploic appendagitis. Treatment is conservative with pain management and anti-inflammatory medications. Low fiber/regular diet. No surgical intervention needed. Past Medical History Past Medical History: Atrial Fibrillation, Cancer, Hyperlipidemia, Hypertension, Prostate Disorder Additional Past Medical History / Comment(s): Kidney and Prostate cancer History of Any Multi-Drug Resistant Organisms: None Reported Past Surgical History: Cardiac Ablation, Heart Catheterization With Stent Additional Past Surgical History / Comment(s): Right nephrectomy December 2017, stents x2 Past Anesthesia/Blood Transfusion Reactions: No Reported Reaction Date of Last Stent Placement:: unk Past Psychological History: No Psychological Hx Reported Smoking Status: Current every day smoker Past Alcohol Use History: Rare Past Drug Use History: None Reported Medications and Allergies Home Medications Medication Instructions Recorded Confirmed Type Apixaban [Eliquis] 5 mg PO BID 11/04/17 01/30/23 History Aspirin [Adult Low Dose Aspirin EC] 81 mg PO DAILY 11/04/17 01/30/23 History Atorvastatin [Lipitor] 80 mg PO HS 07/23/22 01/30/23 History carvediloL [Coreg] 6.25 mg PO BID 07/23/22 01/30/23 History Amoxic-Pot Clav 875-125Mg 1 tab PO DIRECTED 01/30/23 01/30/23 History [Augmentin 875-125] HYDROcodone/APAP 5-325MG [[place] 1 tab PO DIRECTED PRN 01/30/23 01/30/23 History 5-325] LORazepam [Ativan] 1 mg PO DIRECTED PRN 01/30/23 01/30/23 History Meclizine [Antivert] 25 mg PO TID PRN 01/30/23 01/30/23 History Nicotine 14Mg/24Hr Patch [Habitrol 1 patch TRANSDERM DAILY PRN 01/30/23 01/30/23 History 14Mg/24Hr Patch] Allergies Allergy/AdvReac Type Severity Reaction Status Date / Time iodine Allergy Hallucinati Verified 01/30/23 20:43 ons ketorolac [From Toradol] Allergy Anaphylaxis Verified 01/30/23 20:43 acetaminophen AdvReac Nausea & Verified 01/30/23 20:43 [From Darvocet-N] Vomiting & Diarrhea propoxyphene AdvReac Nausea & Verified 01/30/23 20:43 [From Darvocet-N] Vomiting & Diarrhea Surgical - Exam Vital Signs Temp Pulse Resp BP Pulse Ox 98.6 F 61 20 151/89 99 01/30/23 15:18 01/30/23 15:18 01/30/23 15:18 01/30/23 15:18 01/30/23 15:18 Results - Labs 01/31/23 07:56 01/31/23 07:56 Abnormal Lab Results - Last 24 Hours (Table) 01/30/23 01/30/23 01/31/23 Range/Units 18:01 18:01 07:56 RBC 4.18 L (4.30-5.90) m/uL MCV 100.4 H 100.5 H (80.0-100.0) fL Chloride 108 H (98-107) mmol/L Calcium (8.4-10.2) mg/dL Total Protein (6.3-8.2) g/dL Albumin (3.5-5.0) g/dL 01/31/23 Range/Units 07:56 RBC (4.30-5.90) m/uL MCV (80.0-100.0) fL Chloride 109 H (98-107) mmol/L Calcium 8.2 L (8.4-10.2) mg/dL Total Protein 5.6 L (6.3-8.2) g/dL Albumin 3.0 L (3.5-5.0) g/dL Diabetes panel 01/30/23 01/31/23 Range/Units 18:01 07:56 Sodium 139 138 (137-145) mmol/L Potassium 4.1 4.0 (3.5-5.1) mmol/L Chloride 108 H 109 H (98-107) mmol/L Carbon Dioxide 26 24 (22-30) mmol/L BUN 15 13 (9-20) mg/dL Creatinine 0.94 0.94 (0.66-1.25) mg/dL Glucose 78 91 (74-99) mg/dL Calcium 9.1 8.2 L (8.4-10.2) mg/dL AST 25 19 (17-59) U/L ALT 24 19 (4-49) U/L Alkaline Phosphatase 125 121 (38-126) U/L Total Protein 6.9 5.6 L (6.3-8.2) g/dL Albumin 3.9 3.0 L (3.5-5.0) g/dL Calcium panel 01/30/23 01/31/23 Range/Units 18:01 07:56 Calcium 9.1 8.2 L (8.4-10.2) mg/dL Phosphorus 3.5 3.0 (2.5-4.5) mg/dL Albumin 3.9 3.0 L (3.5-5.0) g/dL Pituitary panel 01/30/23 01/31/23 Range/Units 18:01 07:56 Sodium 139 138 (137-145) mmol/L Potassium 4.1 4.0 (3.5-5.1) mmol/L Chloride 108 H 109 H (98-107) mmol/L Carbon Dioxide 26 24 (22-30) mmol/L BUN 15 13 (9-20) mg/dL Creatinine 0.94 0.94 (0.66-1.25) mg/dL Glucose 78 91 (74-99) mg/dL Calcium 9.1 8.2 L (8.4-10.2) mg/dL Adrenal panel 01/30/23 01/31/23 Range/Units 18:01 07:56 Sodium 139 138 (137-145) mmol/L Potassium 4.1 4.0 (3.5-5.1) mmol/L Chloride 108 H 109 H (98-107) mmol/L Carbon Dioxide 26 24 (22-30) mmol/L BUN 15 13 (9-20) mg/dL Creatinine 0.94 0.94 (0.66-1.25) mg/dL Glucose 78 91 (74-99) mg/dL Calcium 9.1 8.2 L (8.4-10.2) mg/dL Total Bilirubin 1.0 0.9 (0.2-1.3) mg/dL AST 25 19 (17-59) U/L ALT 24 19 (4-49) U/L Alkaline Phosphatase 125 121 (38-126) U/L Total Protein 6.9 5.6 L (6.3-8.2) g/dL Albumin 3.9 3.0 L (3.5-5.0) g/dL
[2023-01-31] MEDS: SODIUM CHLORIDE 0.9% 1,000 ML IV SCH (17:25)
[2023-02-01] MEDS: AMPICILLIN-SULBACTAM 3 GM in SODIUM CHLORIDE 0.9% 100 ML IVPB SCH (01:52)
[2023-02-01] MEDS: MORPHINE SULFATE 4 MG/ML SYRINGE IVP PRN ×2 (01:55→05:56)
[2023-02-01] MEDS: SODIUM CHLORIDE 0.9% 1,000 ML IV SCH (05:02)
[2023-02-01] MEDS: carvediloL 6.25 MG TAB PO SCH (06:44)
[2023-02-01 06:45] VITALS: BP 137/80; PULSE 61; RESP 18; TEMP 98.4
[2023-02-01] MEDS: APIXABAN 5 MG TAB PO SCH (08:44)
[2023-02-01] MEDS: NICOTINE 14MG/24HR PATCH TRANSDERM SCH (08:44)
[2023-02-01 09:20] LABS: HCT 40.2 % (39.6-50.0); HGB 13.6 d/dL (13.0-17.0); MCH 34.2 pg (27.0-32.0); MCHC 33.8 d/dL (32.0-37.0); Mean Platelet Volume 10.9 FL (9.5-12.2); NRBC Per 100 WBC 0 X 10*3/uL (0.00-0.01); Platelet Count 205 X 10*3/uL (140-440); RBC 3.98 X 10*6/uL (4.40-5.60); RDW 12.3 % (11.5-14.5); WBC 9.97 X 10*3/uL (4.50-10.00)
[2023-02-01] MEDS ORDERED: metroNIDAZOLE 500 MG TAB PO SCH (09:30)
[2023-02-01] MEDS ORDERED: CIPROFLOXACIN HCL 500 MG TAB PO SCH (09:30)
[2023-02-01 09:37] LABS: BUN/Creat Ratio 11.64 Ratio (12.00-20.00); Blood Urea Nitrogen 12.8 mg/dL (9.0-27.0); Calcium 8.5 mg/dL (8.7-10.3); Carbon Dioxide 22.8 mmol/L (21.6-31.8); Chloride 107 mmol/L (96-109); Glucose 107 mg/dL (70-110); Magnesium 1.9 mg/dL (1.5-2.4); Potassium 4.1 mmol/L (3.5-5.5); Sodium 139 mmol/L (135-145)
--- NOTE | 2023-02-01 12:38 | P.DS ---
Providers Date of admission: 01/30/23 20:10 Expected date of discharge: 02/01/23 Attending physician: Benjie Samuels Consults: 01/30/23 21:20 Consult Physician Urgent Consulting Provider: Monique Camacho Consult Reason/Comments: abdominal pain, diverticulitis Do you want consulting provider notified?: Yes, Notify in am Primary care physician: John Serna MD Hospital Course: * 62-year-old gentleman with past medical history significant for atrial fibrillation, history of prostate cancer, history of renal cancer status post nephrectomy, pulmonary nodule , hypertension presented to the emergency department with complaints of abdominal pain. Patient stated his symptom onset was 5 days ago and was following up with primary care provider who had ordered an outpatient CT abdomen pelvis * Patient states his pain was uncontrolled and decided to come to the emergency even before the CT but reported * On CT report patient was noted to have inflammation in the descending colons consistent with colitis. Surgical absent right kidney was noted. Right lower lung no deal about 12 mm was noted. A dedicated CT chest has been ordered for better evaluation * Workup in ER included CBC which showed WBC of 7.9 hemoglobin 15 hematocrit of 48 and platelet count of 224 * Serum chemistry showed sodium of 139 potassium 4.1 and carbon dioxide 26 BUN 15 creatinine 0.94 * 02/01: Consultation obtained from General surgery. Recommend clear liquid diet at this point. Advance diet as tolerated. Continue with conservative management. Started on antibiotics as well. Patient discharged home since tolerating diet. Abdominal pain has improved white blood cell count within normal limits minimally elevated CRP of 1.7 PHYSICAL EXAMINATION: GENERAL: The patient is alert and oriented x3, not in any acute distress. Well developed, well nourished. HEENT: Pupils are round and equally reacting to light. EOMI. No scleral icterus. No conjunctival pallor. Normocephalic, atraumatic. No pharyngeal erythema. No thyromegaly. CARDIOVASCULAR: S1 and S2 present. No murmurs, rubs, or gallops. PULMONARY: Chest is clear to auscultation, no wheezing or crackles. ABDOMEN: Soft nontender on palpation MUSCULOSKELETAL: No joint swelling or deformity. EXTREMITIES: No cyanosis, clubbing, or pedal edema. NEUROLOGICAL: Gross neurological examination did not reveal any focal deficits. SKIN: No rashes. Assessment: Assessment and plan * Acute colitis involving descending colon * History of atrial fibrillation * History of dyslipidemia * History of CVA * History of renal and prostate cancer status post nephrectomy right side * Pulmonary nodule * In regards to colitis, outpatient CT abdomen and pelvis reviewed. Received IV antibiotic transitioned to oral Cipro and Flagyl upon discharge * In regards to history of A. fib continue Eliquis, Coreg * Diet advanced as tolerated able to tolerate regular diet without difficulty * In regards to lung nodule CT chest ordered without contrast, follow-up with PCP outpatient for CT results Patient Condition at Discharge: Good Plan - Discharge Summary Discharge Rx Participant: No New Discharge Prescriptions: New Ciprofloxacin HCl [Cipro] 500 mg PO BID 5 Days #10 tab metroNIDAZOLE [Flagyl] 500 mg PO TID 5 Days #15 tab Continue Apixaban [Eliquis] 5 mg PO BID Aspirin [Adult Low Dose Aspirin EC] 81 mg PO DAILY Atorvastatin [Lipitor] 80 mg PO HS Meclizine [Antivert] 25 mg PO TID PRN PRN Reason: Vertigo Nicotine 14Mg/24Hr Patch [Habitrol] 1 patch TRANSDERM DAILY PRN PRN Reason: Nicotine Cravings LORazepam [Ativan] 1 mg PO DIRECTED PRN PRN Reason: Anxiety carvediloL [Coreg] 6.25 mg PO BID Changed HYDROcodone/APAP 5-325MG [[place] 5-325] 1 tab PO Q6H PRN 2 Days #8 tab PRN Reason: Pain Discontinued Amoxic-Pot Clav 875-125Mg [Augmentin 875-125] 1 tab PO DIRECTED Discharge Medication List Apixaban [Eliquis] 5 mg PO BID 11/04/17 [History] Aspirin [Adult Low Dose Aspirin EC] 81 mg PO DAILY 11/04/17 [History] Atorvastatin [Lipitor] 80 mg PO HS 07/23/22 [History] carvediloL [Coreg] 6.25 mg PO BID 07/23/22 [History] LORazepam [Ativan] 1 mg PO DIRECTED PRN 01/30/23 [History] Meclizine [Antivert] 25 mg PO TID PRN 01/30/23 [History] Nicotine 14Mg/24Hr Patch [Habitrol] 1 patch TRANSDERM DAILY PRN 01/30/23 [H istory] Ciprofloxacin HCl [Cipro] 500 mg PO BID 5 Days #10 tab 02/01/23 [Rx] HYDROcodone/APAP 5-325MG [[place] 5-325] 1 tab PO Q6H PRN 2 Days #8 tab 02/01/23 [Rx] metroNIDAZOLE [Flagyl] 500 mg PO TID 5 Days #15 tab 02/01/23 [Rx] Follow up Appointment(s)/Referral(s): John Serna MD [Primary Care Provider] - 1-2 days Discharge Disposition: HOME SELF-CARE
--- NOTE | 2023-02-01 14:24 | CT ---
EXAMINATION TYPE: CT chest wo con DATE OF EXAM: 02/01/2023 COMPARISON: 07/23/2019 HISTORY: lung nodule CT DLP: 492.7 mGycm, Automated exposure control for dose reduction was used. CONTRAST: None TECHNIQUE: Axial images were obtained at 5 mm thick sections. Reconstructed images are reviewed on [employer] computer in the coronal plane. FINDINGS: Portion of the thyroid visualized is normal. Some mild infiltrate within the dependent right upper lung field. Similar dependent infiltrate within the mid to lower left lung field with some mild infiltrate at the lower right lung field. Findings a re nonspecific but could be related to some compressive atelectasis. No enlarged mediastinal or hilar adenopathy is evident. Small shoddy lymph nodes are present within the mediastinum. The ascending aorta diameter at the level of the main pulmonary artery is 3.5 cm. The main pulmonary artery diameter at the bifurcation is 3.0 cm. Dense coronary artery calcification is present. Limited CT sections are obtained through the upper abdomen. Abdomen is essentially unremarkable. IMPRESSION: 1. Bibasilar infiltrates likely on the basis of atelectasis
== END 2023-02-01 13:42 | disposition home or self-care (01) ==
LOC: EC 14:49 → 6NMEDSUR 20:10
PROVIDERS: ADMIT Hospitalist; ATTEND Hospitalist
DX: K52.9 Noninfective gastroenteritis and colitis, unspecified (principal); K57.92 Diverticulitis of intestine, part unspecified, without perforation or abscess without bleeding; K63.89 Other specified diseases of intestine; I10 Essential (primary) hypertension; E78.5 Hyperlipidemia, unspecified; I48.91 Unspecified atrial fibrillation; R91.1 Solitary pulmonary nodule; F17.200 Nicotine dependence, unspecified, uncomplicated; Z85.46 Personal history of malignant neoplasm of prostate; Z85.528 Personal history of other malignant neoplasm of kidney; Z86.73 Personal history of transient ischemic attack (TIA), and cerebral infarction without residual deficits; Z90.5 Acquired absence of kidney; Z95.5 Presence of coronary angioplasty implant and graft; Z79.01 Long term (current) use of anticoagulants; Z79.82 Long term (current) use of aspirin; Z79.899 Other long term (current) drug therapy; Z88.6 Allergy status to analgesic agent
CPT/HCPCS: 96376 ×3; 96365; 96366 ×2; 96375; 99285; 36415; 94760; 93005; 83880; 80053 ×2; 80048; 83605; 83735 ×3; 84100 ×2; 84484; 85025 ×2; 85027; 85610; 85730; 86140; 87040; 71250; G0378 ×3; S4990 ×3; J2270 ×3; J2405; J0295 ×3

== ENCOUNTER → 2023-05-01 | Outpatient (CLI) | payer OTHER ==
--- NOTE | 2023-05-02 10:00 | PE ---
EXAMINATION TYPE: PET CT fusion skull to thigh DATE OF EXAM: 05/01/2023 CLINICAL INDICATION:Male, 62 years old with history of C61 PROSTATE CANCER; TECHNIQUE: Following the intravenous administration of 10.8 mCi of F-18 FDG, whole body images are performed from the skull base to the midthigh. Images are reviewed on the computer in the coronal, a xial, and sagittal planes. Reconstructed rotating images are created on independent workstation and reviewed on the computer. A non-contrast CT is performed in conjunction with the PET scan. CT DLP: 824.66 mGycm, Automated exposure control for dose reduction was used. COMPARISON: CT 01/30/2023, 02/01/2023., PET/CT None, FINDINGS: Mediastinal SUV mean is 2.1. Hepatic parenchyma SUV mean is 2.6. SKULL BASE AND NECK: No suspicious radiotracer activity. CHEST, MEDIASTINUM, AND HILAR REGION: Pulmonary nodules with FDG activity below back on levels. Right lower lung pulmonary nodule measuring up to 9 mm image 126 and in the left lower lobe pulmonary nodule image 118 measuring 7 mm and image 21 measuring 7 mm. No suspicious FDG activity. ABDOMEN AND PELVIS: * Posttreatment changes to the prostate gland with heterogenous ill-defined uptake max SUV 4.1. No e nlarged lymph nodes or or metabolically active lymph nodes identified. MUSCULOSKELETAL STRUCTURES: No suspicious radiotracer activity. Sclerotic focus within the L3 vertebr al body as seen on 01/30/2023 and back to 07/23/2019. OTHER CT: Atherosclerosis of the arterial vasculature including the carotid bifurcations and coronary arteries. Mild gynecomastia changes. Mild cardiomegaly. Scattered colonic diverticula present. Fat-c ontaining inguinal hernias. Fat-containing umbilical hernia. IMPRESSION: * No suspicious radiotracer activity. Posttreatment changes to the prostate gland without focal upta ke. A pet/CT gallium-68 PSMA scan is more sensitive for prostate cancer. * Stable sclerotic focus within the L3 vertebral body dating back to 07/23/2019.
== END | disposition home or self-care (01) ==
LOC: RADPETMAIN 11:43
PROVIDERS: ATTEND Radiology Radiation Oncology
DX: C61 Malignant neoplasm of prostate (principal); C64.1 Malignant neoplasm of right kidney, except renal pelvis; M89.8X8 Other specified disorders of bone, other site; Z85.46 Personal history of malignant neoplasm of prostate
CPT/HCPCS: 78815; A9552